=== PATIENT | female | born 1990 | race Caucasian/White ===

== ENCOUNTER 2016-10-08 21:24 | Emergency (ER) | payer BC ==
[2016-10-08] MEDS ORDERED: diphenhydrAMINE 50 MG CAP PO STA (21:45)
[2016-10-08] MEDS ORDERED: methylPREDNISolone SOD SUCCI 125 MG/2 ML VIAL IV STA (21:45)
[2016-10-08] MEDS ORDERED: FAMOTIDINE 20 MG/2 ML VIAL IV STA (21:45)
[2016-10-08] MEDS ORDERED: ALBUTEROL NEBULIZED 2.5 MG/3 ML INHALATION STA (21:46)
[2016-10-08] MEDS ORDERED: EPINEPHrine 1 MG/ML 1 ML AMP IM STA (21:47)
[2016-10-08 21:49] VITALS: RESP 18
--- NOTE | 2016-10-08 21:54 | ED ---
Skin/Abscess/FB HPI - General Chief complaint: Skin/Abscess/Foreign Body Stated complaint: Rash/Hands Time Seen by Provider: 10/08/16 21:42 Source: patient, RN notes reviewed Mode of arrival: ambulatory Limitations: no limitations - History of Present Illness Initial comments: Patient is a 26-year-old female chief complaint of a diffuse rash over her back chest and abdomen for the past hour. Patient reports that she also noticed that her hands are swelling. Patient reports that earlier today she had a blue blanco beer however she normally does not drink alcohol. Patient reports that she has no new soaps or new exposures to cause the rash. Patient denies any shortness of breath or chest pain at this time. She denies any swelling of her lips or tongue. Patient states that she took her rings off quickly because she her hands were increasingly swollen. She denies any history of ALLERGIES. - Related Data Home Medications Medication Instructions Recorded Confirmed Pnv with Ca,No.72/Iron/FA 10/08/16 [ Plus Tablet] Previous Rx's Medication Instructions Recorded EPINEPHrine (Auto Inject) [Epipen] 0.3 mg IM ONCE PRN #2 syringe 10/08/16 Famotidine [Pepcid] 20 mg PO BID #6 tablet 10/08/16 diphenhydrAMINE [Benadryl] 25 mg PO TID #9 capsule 10/08/16 predniSONE 20 mg PO DAILY #3 tab 10/08/16 Allergies Allergy/AdvReac Type Severity Reaction Status Date / Time No Known Allergies Allergy Verified 10/08/16 21:32 Review of Systems ROS Statement: Those systems with pertinent positive or pertinent negative responses have been documented in the HPI. ROS Other: All systems not noted in ROS Statement are negative. Past Medical History Past Medical History: No Reported History History of Any Multi-Drug Resistant Organisms: None Reported Past Surgical History: Appendectomy, Tonsillectomy Additional Past Surgical History / Comment(s): breast augmentation Past Psychological History: No Psychological Hx Reported Smoking Status: Never smoker Past Alcohol Use History: Rare Past Drug Use History: None Reported General Exam - General Exam Comments Initial Comments: Patient is a pleasant 26-year-old female. She is on appear to be in any acute distress at this time. Limitations: no limitations General appearance: alert, in no apparent distress Head exam: Present: atraumatic, normocephalic, normal inspection Eye exam: Present: normal appearance, PERRL, EOMI. Absent: scleral icterus, conjunctival injection, periorbital swelling ENT exam: Present: normal exam, mucous membranes moist Neck exam: Present: normal inspection. Absent: tenderness, meningismus, lymphadenopathy Respiratory exam: Present: normal lung sounds bilaterally. Absent: respiratory distress, wheezes, rales, rhonchi, stridor Cardiovascular Exam: Present: regular rate, normal rhythm, normal heart sounds. Absent: systolic murmur, diastolic murmur, rubs, gallop, clicks GI/Abdominal exam: Present: soft, normal bowel sounds. Absent: distended, tenderness, guarding, rebound, rigid Extremities exam: Present: normal inspection, full ROM, normal capillary refill. Absent: tenderness, pedal edema, joint swelling, calf tenderness Back exam: Present: normal inspection Neurological exam: Present: alert, oriented X3, CN II-XII intact Psychiatric exam: Present: normal affect, normal mood Skin exam: Present: warm, dry, intact, normal color, rash (Erythematous macular rash over chest and abdomen. Rash is blanchable. Patient has evidence of swelling over the fingers.) Course Vital Signs 10/08/16 10/08/16 10/08/16 21:27 21:47 22:26 Temperature 98.5 F 97.5 F L Pulse Rate 77 68 71 Respiratory 16 18 Rate Blood Pressure 132/59 151/55 O2 Sat by Pulse 96 98 Oximetry 10/08/16 10/08/16 22:35 22:59 Temperature 98.1 F Pulse Rate 72 81 Respiratory 18 Rate Blood Pressure 117/61 O2 Sat by Pulse 98 Oximetry Medical Decision Making - Medical Decision Making Patient is a 26-year-old female with chief complaint of 30 minutes of the erythematous macular rash over chest and back that is extremely pruritic. She also reports that she's had swelling over the hands. Patient relates to these ALLERGIC reaction symptoms to drinking a beer approximately 3 hours ago. She states that she has not had a beer in the past 2 years. She denies any other new contacts or medications. Patient denies any shortness of breath or chest pain at this time. Patient was given IV Solu-Medrol, Pepcid and 0.1 mg of subcu epinephrine. Patient rash has subsided 20 minutes after medications. Patient reports she feels much better at this time. I did advise patient that is a possibility this being related to the beer however we cannot be certain. Patient will be discharged at this time with a prescription for Pepcid, Benadryl , steroids and to follow-up with primary care provider. Patient has no stridor or signs of respiratory distress. Return parameters were discussed.. Disposition Clinical Impression: Urticaria, Hand edema Disposition: HOME SELF-CARE Condition: Good Instructions: Urticaria (ED) Prescriptions: EPINEPHrine (Auto Inject) [Epipen] 0.3 mg IM ONCE PRN #2 syringe PRN Reason: Anaphylaxis Famotidine [Pepcid] 20 mg PO BID #6 tablet diphenhydrAMINE [Benadryl] 25 mg PO TID #9 capsule predniSONE 20 mg PO DAILY #3 tab Referrals: Estefany Leach DO [Primary Care Provider] - 1-2 days Time of Disposition: 22:37
[2016-10-08 23:00] VITALS: BP 117/61; PULSE 81; TEMP 98.1
== END 2016-10-08 23:04 | disposition home or self-care (01) ==
LOC: EC 21:24
DX: L50.9 Urticaria, unspecified (principal); R60.0 Localized edema
CPT/HCPCS: 94640; 96372; 96374; 96375; 99283; J0171; J2930

== ENCOUNTER → 2016-10-19 | Outpatient (CLI) | payer BC | END | disposition home or self-care (01) | LOC: LABWHC1 10:07 | PROVIDERS: ATTEND Obstetrics & Gynecology | DX: Z34.90 Encounter for supervision of normal pregnancy, unspecified, unspecified trimester (principal); Z3A.00 Weeks of gestation of pregnancy not specified | CPT/HCPCS: 36415; 84702 ==

== ENCOUNTER → 2017-10-28 | Outpatient (CLI) | payer BC ==
[2017-10-28 16:30] LABS: Progesterone 8.9 ng/mL
== END | disposition home or self-care (01) ==
LOC: LABMAIN 08:49
PROVIDERS: ATTEND Obstetrics & Gynecology Reproductive Endocrinology
DX: N91.5 Oligomenorrhea, unspecified (principal)
CPT/HCPCS: 36415; 84144; 86762; 86787; 86900; 86901

== ENCOUNTER → 2017-11-23 | Outpatient (CLI) | payer BC | END | disposition home or self-care (01) | LOC: LABWHC1 11:00 | PROVIDERS: ATTEND Obstetrics & Gynecology Reproductive Endocrinology | DX: N91.2 Amenorrhea, unspecified (principal) | CPT/HCPCS: 36415; 84144 ==

== ENCOUNTER → 2019-01-31 | Outpatient (CLI) | payer BC | END | disposition home or self-care (01) | LOC: LABWHC1 09:24 | PROVIDERS: ATTEND Obstetrics & Gynecology | DX: Z34.90 Encounter for supervision of normal pregnancy, unspecified, unspecified trimester (principal) | CPT/HCPCS: 36415; 84702 ==

== ENCOUNTER 2019-02-15 15:54 | Emergency (ER) | payer BC, OTHER ==
[2019-02-15 16:01] VITALS: RESP 18
[2019-02-15] MEDS ORDERED: SODIUM CHLORIDE 0.9% 1,000 ML IV STA (17:29)
[2019-02-15 17:48] LABS: Basophils # (A) 0.1 k/uL (0-0.2); Basophils % (A) 1 %; Eosinophils # (A) 0.2 k/uL (0-0.7); Eosinophils % (A) 3 %; HCT 37.4 % (34.0-46.0); HGB 12.8 gm/dL (11.4-16.0); Lymphocytes # (A) 2.1 k/uL (1.0-4.8); Lymphocytes % (A) 39 %; MCH 31.8 pg (25.0-35.0); MCHC 34.3 g/dL (31.0-37.0); MCV 92.9 fL (80.0-100.0); Mean Platelet Volume 7.1; Monocytes # (A) 0.4 k/uL (0-1.0); Monocytes % (A) 8 %; Neutrophils # (A) 2.5 k/uL (1.3-7.7); Neutrophils % (A) 46 %; Platelet Count 279 k/uL (150-450); RBC 4.03 m/uL (3.80-5.40); RDW 12.1 % (11.5-15.5); WBC 5.4 k/uL (3.8-10.6)
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
[2019-02-15 17:57] LABS: INR 0.9 (<1.2); Partial Thromboplastin Time 25.8 sec (22.0-30.0); Prothrombin Time 10.1 sec (9.0-12.0)
[2019-02-15 18:02] LABS: ALT 12 U/L (9-52); AST 18 U/L (14-36); African American GFR (CKD) >90 (>60 ml/min/1.73 sqM); Albumin 4.1 g/dL (3.5-5.0); Alcohol <10 mg/dL; Alkaline Phosphatase 53 U/L (38-126); Anion Gap 6 mmol/L; Blood Urea Nitrogen 15 mg/dL (7-17); Calcium 9.5 mg/dL (8.4-10.2); Carbon Dioxide 27 mmol/L (22-30); Chloride 107 mmol/L (98-107); Glucose 97 mg/dL (74-99); Potassium 4.4 mmol/L (3.5-5.1); Sodium 140 mmol/L (137-145); Total Bilirubin 0.4 mg/dL (0.2-1.3); Total Protein 6.7 g/dL (6.3-8.2)
[2019-02-15 18:18] LABS: Appearance,Urine Clear (Clear); Bilirubin,Urine Negative (Negative); Blood,Urine Negative (Negative); Color,Urine Light Yellow; Glucose,Urine (UA) Negative (Negative); Ketones,Urine Negative (Negative); Leukocyte Esterase,Urine Negative (Negative); Nitrite,Urine Negative (Negative); Protein,Urine Negative (Negative); Specific Gravity,Urine 1.006 (1.001-1.035); Urobilinogen,Urine <2.0 mg/dL (<2.0)
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
[2019-02-15 20:07] VITALS: BP 102/59; PULSE 54; TEMP 97.3
== END 2019-02-15 20:07 | disposition home or self-care (01) ==
LOC: EC 15:54
DX: S20.219A Contusion of unspecified front wall of thorax, initial encounter (principal); S09.90XA Unspecified injury of head, initial encounter; R21 Rash and other nonspecific skin eruption; M54.2 Cervicalgia; Z79.899 Other long term (current) drug therapy; V49.59XA Passenger injured in collision with other motor vehicles in traffic accident, initial encounter; Y92.410 Unspecified street and highway as the place of occurrence of the external cause
CPT/HCPCS: 36415; 80053; 84484; 85025; 85610; 85730; 81003; 81025; 80320; 71045; 72125; 70450; 71260; 74177; 99284; 96360; Q9967

== ENCOUNTER → 2021-03-29 | Outpatient (CLI) | payer BC ==
[2021-03-29 12:55] LABS: Basophils # (A) 0.05 X 10*3/uL (0.00-0.10); Basophils % (A) 0.9 %; Eosinophils # (A) 0.13 X 10*3/uL (0.04-0.35); Eosinophils % (A) 2.2 %; HCT 40.3 % (37.2-46.3); HGB 13.1 g/dL (12.0-15.0); Lymphocytes # (A) 1.58 X 10*3/uL (0.90-5.00); Lymphocytes % (A) 27.3 %; MCH 31.6 pg (27.0-32.0); MCHC 32.5 g/dL (32.0-37.0); MCV 97.1 fL (80.0-97.0); Mean Platelet Volume 10.3 fL (9.5-12.2); Monocytes # (A) 0.58 X 10*3/uL (0.20-1.00); Neutrophils # (A) 3.44 X 10*3/uL (1.80-7.70); Neutrophils % (A) 59.4 %; Platelet Count 296 X 10*3/uL (140-440); RBC 4.15 X 10*6/uL (4.10-5.20); RDW 11.9 % (11.5-14.5); WBC 5.79 X 10*3/uL (4.50-10.00)
[2021-03-29 16:14] LABS: African American GFR (CKD) 133.8 (60.0-200.0); Albumin 4.3 g/dL (3.80-4.90); Albumin/Globulin Ratio 1.72 (1.60-3.17); Anion Gap 7.8 mmol/L (4.00-12.00); BUN/Creat Ratio 17.14 Ratio (12.00-20.00); Calcium 9.3 mg/dL (8.7-10.3); Carbon Dioxide 25.2 mmol/L (21.6-31.8); Globulin 2.5 g/dL (1.6-3.3); Non-African American GFR(CKD) 115.4 (60.0-200.0); Potassium 4.7 mmol/L (3.5-5.5); Total Bilirubin 0.8 mg/dL (0.2-1.2); Total Protein 6.8 g/dL (6.2-8.2)
[2021-03-29 16:20] LABS: T4, Free (Free Thyroxine) 1.2 ng/dL (0.80-1.80)
[2021-03-29 16:34] LABS: Folate, Serum 18.4 ng/mL
== END | disposition home or self-care (01) ==
LOC: LABWHC1 07:14
PROVIDERS: ATTEND Family Medicine
DX: L65.9 Nonscarring hair loss, unspecified (principal); F33.1 Major depressive disorder, recurrent, moderate; F41.8 Other specified anxiety disorders
CPT/HCPCS: 36415; 80053; 82306; 82607; 82746; 84439; 84443; 85025